=== PATIENT | male | born 2000 | race African-American/Black ===

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

== ENCOUNTER 2018-09-18 16:33 | Emergency (ER) | payer MEDICAID ==
[~2018-09-18] VITALS: Ht 185.4 cm; Wt 84.0 kg
[2018-09-18 20:09] LABS: CLARITY URINE CLEAR (CLEAR); COLOR URINE YELLOW (YELLOW); KETONES URINE TRACE (NEGATIVE); LEUKOCYTE ESTERASE URINE NEGATIVE (NEGATIVE); NITRITE URINE NEGATIVE (NEGATIVE); OCCULT BLOOD URINE NEGATIVE (NEGATIVE); PH URINE 5.5 (4.5-8.0); PROTEIN URINE NEGATIVE (NEGATIVE); SPECIFIC GRAVITY URINE 1.028 (1.005-1.030); UROBILINOGEN URINE 0.2 E.U./dL (0.2-1.0)
[2018-09-18 20:30] VITALS: BP 121/69
[2018-09-18] MEDS ORDERED: AZITHROMYCIN 500 MG TABLET PO ONE (20:30)
[2018-09-18] MEDS ORDERED: CEFTRIAXONE SODIUM 250 MG/VIAL IM ONE (20:30)
== END 2018-09-18 20:50 | disposition home or self-care (01) ==
LOC: ER 16:33
DX: R30.0 Dysuria (principal); F12.10 Cannabis abuse, uncomplicated; Z98.890 Other specified postprocedural states
CPT/HCPCS: 81003; 96372; 99283; J0696

== ENCOUNTER 2019-08-27 21:51 | Emergency (ER) | payer MEDICAID ==
[~2019-08-27] VITALS: Ht 185.4 cm; Wt 87.0 kg
[2019-08-27 22:06] VITALS: BP 131/77
[2019-08-27] MEDS ORDERED: CEFTRIAXONE SODIUM 250 MG/VIAL IM ONE (23:15)
[2019-08-27] MEDS ORDERED: AZITHROMYCIN 500 MG TABLET PO ONE (23:15)
[2019-08-27 23:36] LABS: CLARITY URINE CLEAR (CLEAR); COLOR URINE YELLOW (YELLOW); KETONES URINE TRACE (NEGATIVE); LEUKOCYTE ESTERASE URINE NEGATIVE (NEGATIVE); NITRITE URINE NEGATIVE (NEGATIVE); OCCULT BLOOD URINE NEGATIVE (NEGATIVE); PH URINE 5.5 (4.5-8.0); PROTEIN URINE NEGATIVE (NEGATIVE); SPECIFIC GRAVITY URINE 1.024 (1.005-1.030)
== END 2019-08-28 01:24 | disposition home or self-care (01) ==
LOC: ER 21:51
DX: R30.0 Dysuria (principal)
CPT/HCPCS: 81003; 96372; 99283; J0696